=== PATIENT | female | born 1985 | race Caucasian/White ===

== ENCOUNTER 2022-01-11 11:03 | Outpatient (REF) | payer OTHER, SELFPAY ==
[2022-01-11 14:12] LABS: D Dimer High Sensitivity < 150 NG/ML
[2022-01-11 14:46] LABS: Thyroid Stimulating Hormone 0.86 uIU/mL (0.32-4.0)
== END 2022-01-11 11:04 | disposition home or self-care (01) ==
LOC: HO.10HDL 11:03
PROVIDERS: Visit Provider Internal Medicine
DX: G43.909 Migraine, unspecified, not intractable, without status migrainosus (principal); H81.11 Benign paroxysmal vertigo, right ear; R53.83 Other fatigue; Z86.711 Personal history of pulmonary embolism
CPT/HCPCS: 36415; 84443; 85379

== ENCOUNTER 2025-09-03 09:31 | Outpatient (REF) | payer OTHER, SELFPAY ==
--- OUTSIDE RECORDS SUMMARY | 2025-09-03 10:11 | XMS_ITS | Clinical Summary ---
Author Organization [address] [facility] Address [address] [place] [address] Phone Care Team Providers Care Screen Printing Stencil Preparer Name Role Phone Deepthi Kilgore MD Primary Care Provider [phone] Social History Tobacco Use Types Packs/Day Years Used Date Smoking Tobacco: Never Assessed Comments Unknown Sex and Gender Information Value Date Recorded Sex Assigned at Not on file Legal Sex Female 11:28 PM EST Gender Identity Not on file Sexual Orientation Not on file Plan of Treatment Health Maintenance Due Date Last Done Comments DTaP,Tdap,and Td Vaccines (1 - Tdap) 2002 Hepatitis B Vaccines (1 of 3 - 19+ 3-dose series) 2002 Cervical Cancer Screening: P ap Smear 2004 HPV Vaccines (1 - 3-dose SCD M series) 2010 HIV Screening 11/04/2022 Hepatitis C Screening 11/04/2022 Social Influencers of Health Screening 11/04/2022 Depression Screening 12/02/2024 COVID-19 Vaccine (3 - 2024-2 6 season) 2025 09/11/2021, 08/21/2021 Influenza Vaccine (#1) 2025 Breast Cancer Screening 01/29/2026 01/29/2024 Hypertension/CHF/CAD Annual BMP Blood Test 03/08/2026 03/08/2025, 10/23/2017 Cholesterol Screening (Lipid Panel) 03/08/2030 03/08/2025, 12/07/2024 RSV Immunization Adult Patients (1 - 1-dose 75+ series) 2058 MMR Vaccines Aged Out 03/09/2018, 02/09/2018 No longer eligible based on patient's age to complete this topic HIB Vaccines Aged Out No longer eligi ble based on patient's age to complete this topic Hepatitis A Vaccines Aged Out No long er eligible based on patient's age to complete this topic IPV Vaccines Aged Out No longer eligi ble based on patient's age to complete this topic Meningococcal ACWY Vaccine Aged Out N o longer eligible based on patient's age to complete this topic Meningococcal B Vaccine Aged Out No l onger eligible based on patient's age to complete this topic Pneumococcal Vaccine: Pediatrics (0 to 5 Years) and At-Risk Patients (6 to 49 Years) Aged Out No longer eligible b ased on patient's age to complete this topic RSV Immunization Patients Under 20 months Aged Out No longer eligible b ased on patient's age to complete this topic Varicella Vaccines Aged Out No longer eligible based on patient's age to complete this topic Procedures Procedure Name Priority Date/Time Associated Diagnosis Comments COMPREHENSIVE METABOLIC PANEL Routine 03/08/2025 9:40 AM EDT Essential hypertension, malignant Anginal syndrome ([facility] V24) Edema LIPID PANEL WITH REFLEX TO DIRECT LDL Routine 03/08/2025 9:40 AM EDT Essential hypertension, malignant Anginal syndrome ([facility] V24) Edema SHANICE SCREENING DIGITAL Routine 01/29/2024 4:48 PM EST Encounter for screening mammogram for malignant neoplasm of breast from Last 3 Months or Most Recently Relevant to Health Maintenance Results * (ABNORMAL) Lipid panel with reflex to direct LDL (03/08/2025 9:40 AM EDT) Cholesterol 176 0 - 200 mg/dL LAB CHEMISTRY METHOD 03/08/2025 11:18 AM T [facility] Triglycerides 47 0 - 150 mg/dL LAB CHEMISTRY METHOD 03/08/2025 11:18 AM [facility] HDL 62 >=40 mg/dL LAB CHEMISTRY METHOD 03/08/2025 11:18 AM [facility] LDL Calculated 105(H) 0 - 100 mg/dL LAB CHEMISTRY METHOD 03/08/2025 11:18 AM [facility] VLDL Cholesterol Adriel 9.4 mg/dL LAB CHEMISTRY METHOD 03/08/2025 11:18 AM [facility] Non HDL Chol. (LDL+VLDL) 114 <145 mg/dL LAB CHEMISTRY METHOD 03/08/2025 11:18 AM [facility] Chol/HDL Ratio 2.8 0.0 - 4.4 LAB CHEMISTRY METHOD 03/08/2025 11:18 AM [facility] Blood Venous blood specimen / Unknown Venipuncture / Unknown 03/08/2025 9:40 AM EDT 03/08/2025 10:09 AM EDT us Deepthi Kilgore MD LAB BLOOD ORDERABLES Final Re sult [facility] [address] [place] [address], [place] [phone] * (ABNORMAL) Comprehensive metabolic panel (03/08/2025 9:40 AM EDT) Sodium 139 133 - 145 mmol/L LAB CHEMISTRY METHOD 03/08/2025 11:16 AM [facility] Potassium 4.7 3.5 - 5.5 mmol/L LAB CHEMISTRY METHOD 03/08/2025 11:16 AM [facility] Chloride 108 96 - 110 mmol/L LAB CHEMISTRY METHOD 03/08/2025 11:16 AM [facility] CO2 27 21 - 32 mmol/L LAB CHEMISTRY METHOD 03/08/2025 11:16 AM [facility] Anion Gap 4 3 - 11 LAB CHEMISTRY METHOD 03/08/2025 11:16 AM [facility] Glucose 95 70 - 100 mg/dL LAB CHEMISTRY METHOD 03/08/2025 11:16 AM [facility] BUN 14 5 - 25 mg/dL LAB CHEMISTRY METHOD 03/08/2025 11:16 AM [facility] Creatinine 0.80 0.50 - 1.10 mg/dL LAB CHEMISTRY METHOD 03/08/2025 11:16 AM [facility] eGFR 95 >=60 mL/min/1. 73m2 LAB CHEMISTRY METHOD 03/08/2025 11:16 AM [facility] Comment:Calculation based on the Chronic Kidney Disease Epidemiology Collaboration (CKD-EPI) equation refit without adjustment for race. BUN/Creatinine Ratio 17.5 LAB CHEMISTRY METHOD 03/08/2025 11:16 AM [facility] Calcium 9.1 8.5 - 10.5 mg/dL LAB CHEMISTRY METHOD 03/08/2025 11:16 AM [facility] AST (SGOT) 5(L) 10 - 42 unit/L LAB CHEMISTRY METHOD 03/08/2025 11:16 AM [facility] ALT (SGPT) 15 10 - 60 unit/L LAB CHEMISTRY METHOD 03/08/2025 11:16 AM [facility] Alkaline Phosphatase 61 42 - 121 unit/L LAB CHEMISTRY METHOD 03/08/2025 11:16 AM [facility] Total Protein 6.6 6.0 - 8.0 g/dL LAB CHEMISTRY METHOD 03/08/2025 11:16 AM [facility] Albumin 3.7 3.2 - 5.0 g/dL LAB CHEMISTRY METHOD 03/08/2025 11:16 AM [facility] Total Bilirubin 0.8 0.0 - 1.4 mg/dL LAB CHEMISTRY METHOD 03/08/2025 11:16 AM [facility] Blood Venous blood specimen / Unknown Venipuncture / Unknown 03/08/2025 9:40 AM EDT 03/08/2025 10:09 AM EDT us Deepthi Kilgore MD LAB BLOOD ORDERABLES Final Re sult [facility] [address] [place] [address], * [facility] SCREENING DIGITAL (01/29/2024 4:48 PM EST) Anatomical Region Laterality Modality Mammography 01/29/2024 1:47 PM EST Narrative 01/29/2024 4:[address] [facility] Diagnostic Imaging Department [address] [place] [address] Patient: GERDA CARRILLOO.B./Age/Sex: 1985 - 38 - F Unit#: [id number] Location/Status: SPDIMAM/PRE CLI Mnemonic/Ordering Site: [facility] Ordering Physician: DEEPTHI KILGORE MD [facility] Screening Digital - 01/29/24 - 1642 Report Status:Signed EXAM: [facility] Screening Digital EXAM DATE AND TIME: 01/29/2024 4:43 PM HISTORY: Baseline screening COMPARISON: None TECHNIQUE: Bilateral digital breast tomosynthesis was performed in the CC and MLO projections. Computer aided detection with [employer] 3D 3.1 was employed. TISSUE DENSITY: b. There are scattered areas of fibroglandular density. FINDINGS: No suspicious masses, grouped microcalcifications, or areas of architectural distortion are seen. The skin and vascularity are unremarkable. IMPRESSION: Stable mammographic appearance of the breasts. No evidence of malignancy is seen. A negative mammogram in the presence of a clinically suspicious palpable abnormality does not preclude the possibility of malignancy or alter the indications for biopsy. BI-RADS: Category 1: Negative RECOMMENDATION(S): 1: Routine screening mammogram BILATERAL in 1 year. 3341F, 7025F Dictating Physician: RADHA HIGH MD Electronically Signed by: RADHA HIGH MD Dic Date/Time: 01/29/241647 Sign date/Time: 01/29/241647 Procedure Note Radha High MD - 07/20/2024 [facility] Diagnostic Imaging Department [address] [place] [id number] Patient: LORENAGERDAO.B./Age/Sex: 1985 - 38 - F Unit#: [id number] Location/Status: SPDIMAM/PRE CLI Mnemonic/Ordering Site: [facility] Ordering Physician: DEEPTHI KILGORE MD [facility] Screening Digital - 01/29/24 - 1641 Report Status:Signed EXAM: [facility] Screening Digital EXAM DATE AND TIME: 01/29/2024 4:43 PM HISTORY: Baseline screening COMPARISON: None TECHNIQUE: Bilateral digital breast tomosynthesis was performed in the CCand MLO projections. Computer aided detection with [employer] 3D 3.1was employed. TISSUE DENSITY: b. There are scattered areas of fibroglandular density. FINDINGS: No suspicious masses, grouped microcalcifications, or areas ofarchitectural distortion are seen. The skin and vascularity are unremarkable. IMPRESSION: Stable mammographic appearance of the breasts. No evidence of malignancyis seen. A negative mammogram in the presence of a clinically suspicious palpable abnormality does not preclude the possibility of malignancy or alter the indications for biopsy. BI-RADS: Category 1: Negative RECOMMENDATION(S): 1: Routine screening mammogram BILATERAL in 1 year. 3341F, 7007F Dictating Physician: RADHA HIGH MD Electronically Signed by: RADHA HIGH MD Dic Date/Time: 01/29/241647 Sign date/Time: 01/29/241647 us Deepthi Kilgore MD IMG BI PROCEDURES Final Resul t from Last 3 Months or Most Recently Relevant to Health Maintenance Insurance [employer] Care Teams Screen Printing Stencil Preparer Relationship Specialty Start Date End Date Deepthi Kilgore MD [facility] PCP - General Internal Medicine 01/04/15
--- OUTSIDE RECORDS SUMMARY | 2025-09-03 10:11 | XMS_ITS | Encounter Summary ---
Author Organization [facility] Address [address] [place] [address] Care Team Providers Care Semiautomatic Stitcher Operator Name Role Phone Deepthi Palma MD Primary Care Provider [phone] Encounter Details Date Type Department Care Team (Late st Contact Info) Description 12/07/2024 Lab Requisition [facility] Main Lab [address] [place] [address] Deepthi Palma MD [address] [place] [address] [place] [address] Body mass index (BMI) 31.0-31.9, adult; Essential (primary) hypertension; Migraine with aura, not intractable, without status migrainosus Social History Tobacco Use Types Packs/Day Years Used Date Smoking Tobacco: Never Assessed Comments Unknown Sex and Gender Information Value Date Recorded Sex Assigned at Not on file Legal Sex Female 11:28 PM EST Gender Identity Not on file Sexual Orientation Not on file documented as of this encounter Plan of Treatment Not on file documented as of this encounter Procedures Procedure Name Priority Date/Time Associated Diagnosis Comments LIPID PANEL WITH REFLEX TO DIRECT LDL Routine 12/07/2024 9:20 AM EST Body mass index (BMI) 31.0-31.9, adult Essential (primary) hypertension Migraine with aura, not intractable, without status migrainosus documented in this encounter Results * (ABNORMAL) Lipid panel with reflex to direct LDL (12/07/2024 9:20 AM EST) Cholesterol 173 0 - 200 mg/dL LAB CHEMISTRY METHOD 12/07/2024 4:34 PM EST [facility] Triglycerides 43 0 - 150 mg/dL LAB CHEMISTRY METHOD 12/07/2024 4:34 PM [facility] HDL 61 >=40 mg/dL LAB CHEMISTRY METHOD 12/07/2024 4:34 PM [facility] LDL Calculated 103(H) 0 - 100 mg/dL LAB CHEMISTRY METHOD 12/07/2024 4:34 PM [facility] VLDL Cholesterol Adriel 8.6 mg/dL LAB CHEMISTRY METHOD 12/07/2024 4:34 PM [facility] Non HDL Chol. (LDL+VLDL) 112 <145 mg/dL LAB CHEMISTRY METHOD 12/07/2024 4:34 PM [facility] Chol/HDL Ratio 2.8 0.0 - 4.4 LAB CHEMISTRY METHOD 12/07/2024 4:34 PM [facility] Blood Venous blood specimen / Unknown 12/07/2024 9:20 AM EST 12/07/2024 2:22 PM EST us Deepthi Palma MD LAB BLOOD ORDERABLES Final Re sult [facility] [address] [place] [address], documented in this encounter Visit Diagnoses Diagnosis Body mass index (BMI) 31.0-31.9, adult Essential (primary) hypertension Unspecified essential hypertension Migraine with aura, not intractable, without status migrainosus documented in this encounter Care Teams Semiautomatic Stitcher Operator Relationship Specialty Start Date End Date Deepthi Palma MD [address] [place], [place] PCP - General Internal Medicine 01/04/15 documented as of this encounter
== END 2025-09-03 09:32 | disposition home or self-care (01) ==
LOC: HO.MAMMO 09:31
PROVIDERS: PCP Internal Medicine; Visit Provider Internal Medicine
DX: Z12.31 Encounter for screening mammogram for malignant neoplasm of breast (principal)
CPT/HCPCS: 77063; 77067

== ENCOUNTER → 2025-09-03 10:00 | Outpatient (BNV) | payer OTHER, SELFPAY | PROVIDERS: PCP Internal Medicine; Visit Provider Internal Medicine | DX: Z12.31 Encounter for screening mammogram for malignant neoplasm of breast (principal) | CPT/HCPCS: 77063; 77067 ==